=== PATIENT | female | born 1950 | race Caucasian/White ===

== ENCOUNTER → 2017-03-11 | Outpatient (CLI) | payer MEDICARE, OTHER ==
--- NOTE | ~2017-03-11 | CR63 ---
[facility] A Service of [facility] & [facility] RADIOLOGY TEXT RESULTS PATIENT: FORTUNATO MOSS LOCATION: [facility] : 52 UNIT #: [id number] AGE: [address]: Diamond Trinh SEX: F ORDER DR: [id number] [facility] [address] [place], [place] [address] [id number] O MR#: [id number] Acc #: [id number] NAME: FORTUNATO MOSS : 1950 SEX: F STUDY DATE/TIME: 03/11/2017 11:35 UNIT: [facility] ROOM: STUDY DESCRIPTION: CR Chest 2 View Attending Physician: Diamond Trinh A.P.R.N. Referring Physician: Diamond Trinh A.P.R.N. Ordering Physician: Diamond Trinh A.P.R.N. Primary Care Physician: Jn Mark M.D. MEDICAL IMAGING REPORT This report is preliminary unless electronic signature is present EXAM Chest, PA and lateral, 03/11/2017. HISTORY Dyspnea for 3 months and bilateral lower extremity edema. Benign essential hypertension. FINDINGS The heart is normal in size. There is elevation of the right hemidiaphragm with discoid atelectasis at the right lung base. Lungs are otherwise clear. There are no pleural effusions. IMPRESSION No active pulmonary disease. Dictated by... Mariano Morley M.D. THIS IS AN ELECTRONICALLY VERIFIED REPORT Mariano Morley M.D. at 03/13/2017 7:46 AM DESTINY/nathan TD: 03/12/2017 02:01 JOB #: [id number] MEDICAL IMAGING REPORT Page 1 of 1 COPY
== END | disposition home or self-care (01) ==
LOC: CRC 10:00
DX: R06.00 Dyspnea, unspecified (principal); R60.0 Localized edema; I51.7 Cardiomegaly
CPT/HCPCS: 71020; 93306